=== PATIENT | female | born 1980 | race Caucasian/White ===

== ENCOUNTER 2018-10-20 06:00 | Observation (INO) | payer BC ==
[2018-10-14 10:50] LABS: BASOPHILS % 0.6 % (0.0-1.0); EOSINOPHILS # (AUTO) 0.1 (0.0-0.4); EOSINOPHILS % 2.6 % (0.0-6.0); HEMATOCRIT 35.4 % (34.2-44.1); LYMPHOCYTES # (AUTO) 1.3 (1.0-3.2); MEAN CORPUSCULAR HEMOGLOBIN 31.9 pg (28-32); MEAN CORPUSCULAR HGB CONC 33.9 g/dL (31-35); MEAN CORPUSCULAR VOLUME 94.1 fL (81-99); MONOCYTES # (AUTO) 0.3 (0.2-0.8); MONOCYTES % 9.1 % (4.4-11.3); NEUTROPHILS # (AUTO) 1.4 (2.1-6.9); NEUTROPHILS % 44.4 % (38.7-80.0); PLATELET COUNT 315 x10e3/uL (140-360); RED BLOOD COUNT 3.76 x10e6/uL (3.6-5.1); RED CELL DISTRIBUTION WIDTH 12.6 % (11.7-14.4)
[2018-10-14 11:10] LABS: ALANINE AMINOTRANSFERASE 22 IU/L (0-55); ALBUMIN 3.8 g/dL (3.5-5.0); ALBUMIN/GLOBULIN RATIO 1.2 (0.8-2.0); ALKALINE PHOSPHATASE 89 IU/L (40-150); ANION GAP 9.9 mmol/L (8-16); BLOOD UREA NITROGEN 10 mg/dL (7-26); BUN/CREATININE RATIO 14 (6-25); CALCIUM 9.4 mg/dL (8.4-10.2); CARBON DIOXIDE 29 mmol/L (22-29); CHLORIDE 102 mmol/L (98-107); CREATININE, SERUM 0.71 mg/dL (0.57-1.11); EST GLOMERULAR FILTRATION RATE > 60 ML/MIN (60-); GLUCOSE 74 mg/dL (74-118); POTASSIUM 3.9 mmol/L (3.5-5.1); SODIUM 137 mmol/L (136-145)
[~2018-10-20] VITALS: Ht 160 cm; Wt 76.7 kg
[~2018-10-20 06:00] MED LIST: AMBIEN10 MG PO; CYMBALTA30 MG PO; GABAPENTIN300 MG PO; LEVOTHYROXINE75 MCG PO; NORCO 10-325 T1 EACH PO; VYVANSE60 MG PEG
--- OUTSIDE RECORDS SUMMARY | 2018-10-20 06:02 | XMS REPORT ---
Author Author [facility] Address Unknown Phone Unavailable Care Team Providers Care Customer Service Analyst Name Role Phone Unavailable Unavailable Payers Payer Name Policy Type Policy Number Effective Date Expiration Date Problems This patient has no known problems. Allergies, Adverse Reactions, Alerts Allergy Name Allergy Type Status Severity Reaction(s) Onset Date Inactive Date Treating Clinician Comments No Known Allergies DA Active U 2017-12-01 00:00:00 Medications This patient has no known medications. Results Test Description Test Time Test Comments Text Results Atomic Results Result Comments - XR CHEST 2 V 2018-08-21 19:07:00 FAX: Melony Portillo MD [phone] [place]: St: REG FAX: Gloria Toledo MD [phone] Name: MICHAEL CARRASCO [facility] : 1980 Age/S: 37/F [address] [facility] Unit #: [id number] Loc: [address] [place] [address] [place]: [place] [id number] Acct: [id number] Dis Date: Status: REG ER PHONE #: [phone] Exam Date: 08/21/20181855 FAX #: [phone] Reason: FEVER EXAMS: CPT CODE: [id number] XR CHEST 2 V 30053 EXAM: - XR CHEST 2 V LOCATION: C3 HISTORY: FEVER COMPARISON: 06/16/18 FINDINGS: 2 views of the chest. No indwelling lines or tubes. No pneumothorax. The lungs are clear. No pleural effusions are present. The mediastinal contours are unremarkable. No acute osseous findings are present. IMPRESSION: No acute cardiopulmonary abnormality. at 1907 Reported and signed by: Mikey Astorga M.D. CC: Melony sunshine MD; Gloria Toledo MD Technologist: KIM ENRIQUEZ Trnscrd Date/Time/By: 08/21/2018 (1906) : By: [email or web address] PAGE 1 Signed Report FAX: Melony Portillo MD [phone] [place]: St: REG FAX: Gloria Toledo MD [phone] Name: MICHAEL CARRASCO [facility] : 1980 Age/S: 37/F [address] [facility] Unit #: [id number] Loc: [address] [place] [address] [place]: [place] [id number] Acct: [id number] Dis Date: Status: REG ER PHONE #: [phone] Exam Date: 08/21/20181855 FAX #: [phone] Reason: FEVER EXAMS: CPT CODE: [id number] XR CHEST 2 V 24953 <Continued> Orig Print D/T: S: 08/21/2018 (1909) PAGE 2 Signed Report COMPREHENSIVE METABOLIC PANEL 2018-08-21 18:31:00 SODIUM (test code=NA) 139 mmol/l 134.0-147.0 POTASSIUM (test code=K) 3.3 mmol/L 3.6-5.2 CHLORIDE (test code=CL) 101 mmol/l 98.0-107.0 CARBON DIOXIDE (test code=CO2) 31.3 mmol/l 21.0-33.0 ANION GAP (test code=GAP) 10.0 0-20 GLUCOSE (test code=GLU) 84 mg/dl 70.0-110.0 BLOOD UREA NITROGEN (test code=BUN) 24 mg/dl 7.0-18.0 CREATININE (test code=CREAT) 1.17 mg/dL 0.60-1.30 GFR NON BLACK (test code=GFRNONBLACK) 55 mL/min 105-110 GFR BLACK (test code=GFRBLACK) 66 mL/min 127-133 TOTAL PROTEIN (test code=PROT) 8.1 gm/dL 6.4-8.2 ALBUMIN (test code=ALB) 4.0 gm/dl 3.2-4.7 CALCIUM (test code=CA) 9.7 mg/dl 8.0-10.5 BILIRUBIN TOTAL (test code=BILT) 0.2 mg/dl 0.0-1.0 SGOT/AST (test code=AST) 24 Units/L 15.0-37.0 SGPT/ALT (test code=ALT) 57 Units/L 12.0-78.0 ALKALINE PHOSPHATASE TOTAL (test code=ALKP) 116 Units/L 50.0-136.0 COMPREHENSIVE METABOLIC [id number] 18:19:00* Test Item Value Reference Range Comments SODIUM (test code=NA) 139 mmol/l 134.0-147.0 POTASSIUM (test code=K) 3.3 mmol/L 3.6-5.2 CHLORIDE (test code=CL) 101 mmol/l 98.0-107.0 CARBON DIOXIDE (test code=CO2) 31.3 mmol/l 21.0-33.0 ANION GAP (test code=GAP) 10.0 0-20 GLUCOSE (test code=GLU) mg/dl 70.0-110.0 BLOOD UREA NITROGEN (test code=BUN) mg/dl 7.0-18.0 CREATININE (test code=CREAT) mg/dL 0.60-1.30 GFR NON BLACK (test code=GFRNONBLACK) mL/min 105-110 GFR BLACK (test code=GFRBLACK) mL/min 127-133 TOTAL PROTEIN (test code=PROT) gm/dL 6.4-8.2 ALBUMIN (test code=ALB) gm/dl 3.2-4.7 CALCIUM (test code=CA) mg/dl 8.0-10.5 BILIRUBIN TOTAL (test code=BILT) mg/dl 0.0-1.0 SGOT/AST (test code=AST) Units/L 15.0-37.0 SGPT/ALT (test code=ALT) Units/L 12.0-78.0 ALKALINE PHOSPHATASE TOTAL (test code=ALKP) Units/L 50.0-136.0 URINALYSIS [id number] 18:17:00* Test Item Value Reference Range Comments UA COLOR (test code=COLU) YELLOW UA APPEARANCE (test code=APPU) CLEAR UA GLUCOSE DIPSTICK (test code=DGLUU) NORMAL mg/dl NORMAL UA BILIRUBIN DIPSTICK (test code=BILU) NEGATIVE mg/dL NEGATIVE UA KETONE DIPSTICK (test code=KETU) NEGATIVE mg/dl NEGATIVE UA SPECIFIC GRAVITY (test code=SGU) 1.025 1.000-1.030 UA BLOOD DIPSTICK (test code=ABRAHAM) 10 Austin/micL Austin/micL NEGATIVE UA PH DIPSTICK (test code=DELIA) 6.0 5.0-9.0 UA PROTEIN DIPSTICK (test code=PROU) NEGATIVE mg/dl NEGATIVE UA UROBILINIOGEN DIPSTICK (test code=URO) NORMAL mg/dl NORMAL UA NITRITE DIPSTICK (test code=SHELLY) NEGATIVE NEGATIVE UA LEUKOCYTE ESTERASE DIPSTICK (test code=LEUU) 100 Rodrigue/micL Rodrigue/micL NEGATIVE UA WBC (test code=WBCU) 1-3/HPF WBC/HPF NONE UA RBC (test code=RBCU) 1-3 RBC/HPF 0-3 UA EPITHELIAL CELLS (test code=EPIU) 1-3 EPI/HPF 0-3 UA BACTERIA (test code=BACU) FEW NONE UR HCG [id number] 18:17:00* Test Item Value Reference Range Comments UR HCG QUAL (test code=HCGQLU) NEGATIVE NEGATIVE CBC W/AUTO [id number] 18:14:00* Test Item Value Reference Range Comments WHITE BLOOD CELL (test code=WBC) 6.9 K/mm3 4.5-11.0 RED BLOOD CELL (test code=RBC) 4.23 M/mm3 3.80-5.20 HEMOGLOBIN (test code=HGB) 13.1 gm/dL 12.0-16.0 HEMATOCRIT (test code=HCT) 40.3 % 36.0-48.0 MEAN CELL VOLUME (test code=MCV) 95.3 UM3 82.0-99.0 MEAN CELL HGB (test code=MCH) 31.0 UUG 25.5-32.5 MEAN CELL HGB CONCETRATION (test code=MCHC) 32.5 gm/dL 29.0-35.5 RED CELL DISTRIBUTION WIDTH (test code=RDW) 12.2 % 11.5-15.0 PLATELET COUNT (test code=PLT) 332 K/mm3 150-400 MEAN PLATELET VOLUME (test code=MPV) 9.4 fl 7.4-10.4 NEUTROPHIL % (test code=NT%) 49.1 % 49.0-76.0 LYMPHOCYTE % (test code=LY%) 37.1 % 23.0-38.0 MONOCYTE % (test code=MO%) 10.4 % 1.0-10.0 EOSINOPHIL % (test code=EO%) 2.5 % 1.0-5.0 BASOPHIL % (test code=BA%) 0.6 % 0.0-1.0 NEUTROPHIL # (test code=NT#) 3.4 K/mm3 2.4-6.3 LYMPHOCYTE # (test code=LY#) 2.6 K/mm3 1.2-4.0 MONOCYTE # (test code=MO#) 0.7 K/mm3 0.0-0.6 EOSINOPHIL # (test code=EO#) 0.2 K/MM3 0.0-0.7 BASOPHIL # (test code=BA#) 0.0 K/mm3 0.0-0.2 URINALYSIS [id number] 18:10:00* Test Item Value Reference Range Comments UA COLOR (test code=COLU) UA APPEARANCE (test code=APPU) UA GLUCOSE DIPSTICK (test code=DGLUU) NORMAL mg/dl NORMAL UA BILIRUBIN DIPSTICK (test code=BILU) NEGATIVE mg/dL NEGATIVE UA KETONE DIPSTICK (test code=KETU) NEGATIVE mg/dl NEGATIVE UA SPECIFIC GRAVITY (test code=SGU) 1.025 1.000-1.030 UA BLOOD DIPSTICK (test code=ABRAHAM) 10 Austin/micL Austin/micL NEGATIVE UA PH DIPSTICK (test code=DELIA) 6.0 5.0-9.0 UA PROTEIN DIPSTICK (test code=PROU) NEGATIVE mg/dl NEGATIVE UA UROBILINIOGEN DIPSTICK (test code=URO) NORMAL mg/dl NORMAL UA NITRITE DIPSTICK (test code=SHELLY) NEGATIVE NEGATIVE UA LEUKOCYTE ESTERASE DIPSTICK (test code=LEUU) 100 Rodrigue/micL Rodrigue/micL NEGATIVE UA WBC (test code=WBCU) WBC/HPF NONE UA RBC (test code=RBCU) RBC/HPF 0-3 UA EPITHELIAL CELLS (test code=EPIU) EPI/HPF 0-3 UA BACTERIA (test code=BACU) NONE UR HCG [id number] 18:10:00* Test Item Value Reference Range Comments UR HCG QUAL (test code=HCGQLU) NEGATIVE NEGATIVE URINALYSIS [id number] 18:09:00* Test Item Value Reference Range Comments UA COLOR (test code=COLU) UA APPEARANCE (test code=APPU) UA GLUCOSE DIPSTICK (test code=DGLUU) NORMAL mg/dl NORMAL UA BILIRUBIN DIPSTICK (test code=BILU) NEGATIVE mg/dL NEGATIVE UA KETONE DIPSTICK (test code=KETU) NEGATIVE mg/dl NEGATIVE UA SPECIFIC GRAVITY (test code=SGU) 1.025 1.000-1.030 UA BLOOD DIPSTICK (test code=ABRAHAM) 10 Austin/micL Austin/micL NEGATIVE UA PH DIPSTICK (test code=DELIA) 6.0 5.0-9.0 UA PROTEIN DIPSTICK (test code=PROU) NEGATIVE mg/dl NEGATIVE UA UROBILINIOGEN DIPSTICK (test code=URO) NORMAL mg/dl NORMAL UA NITRITE DIPSTICK (test code=SHELLY) NEGATIVE NEGATIVE UA LEUKOCYTE ESTERASE DIPSTICK (test code=LEUU) 100 Rodrigue/micL Rodrigue/micL NEGATIVE UA WBC (test code=WBCU) WBC/HPF NONE UA RBC (test code=RBCU) RBC/HPF 0-3 UA EPITHELIAL CELLS (test code=EPIU) EPI/HPF 0-3 UA BACTERIA (test code=BACU) NONE UR HCG [id number] 18:09:00* Test Item Value Reference Range Comments UR HCG QUAL (test code=HCGQLU) NEGATIVE BASIC METABOLIC [id number] 12:24:00* Test Item Value Reference Range Comments SODIUM (test code=NA) 141 mmol/l 134.0-147.0 POTASSIUM (test code=K) 3.7 mmol/L 3.6-5.2 CHLORIDE (test code=CL) 105 mmol/l 98.0-107.0 CARBON DIOXIDE (test code=CO2) 28.0 mmol/l 21.0-33.0 ANION GAP (test code=GAP) 11.7 0-20 GLUCOSE (test code=GLU) 138 mg/dl 70.0-110.0 BLOOD UREA NITROGEN (test code=BUN) 10 mg/dl 7.0-18.0 CREATININE (test code=CREAT) 0.81 mg/dL 0.60-1.30 GFR NON BLACK (test code=GFRNONBLACK) 83 mL/min 105-110 GFR BLACK (test code=GFRBLACK) 101 mL/min 127-133 CALCIUM (test code=CA) 9.4 mg/dl 8.0-10.5 BASIC METABOLIC [id number] 12:22:00* Test Item Value Reference Range Comments SODIUM (test code=NA) 141 mmol/l 134.0-147.0 POTASSIUM (test code=K) 3.7 mmol/L 3.6-5.2 CHLORIDE (test code=CL) 105 mmol/l 98.0-107.0 CARBON DIOXIDE (test code=CO2) 28.0 mmol/l 21.0-33.0 ANION GAP (test code=GAP) 11.7 0-20 GLUCOSE (test code=GLU) mg/dl 70.0-110.0 BLOOD UREA NITROGEN (test code=BUN) mg/dl 7.0-18.0 CREATININE (test code=CREAT) mg/dL 0.60-1.30 GFR NON BLACK (test code=GFRNONBLACK) mL/min 105-110 GFR BLACK (test code=GFRBLACK) mL/min 127-133 CALCIUM (test code=CA) mg/dl 8.0-10.5 CBC W/AUTO [id number] 12:20:00* Test Item Value Reference Range Comments WHITE BLOOD CELL (test code=WBC) 3.8 K/mm3 4.5-11.0 RED BLOOD CELL (test code=RBC) 4.09 M/mm3 3.80-5.20 HEMOGLOBIN (test code=HGB) 12.8 gm/dL 12.0-16.0 HEMATOCRIT (test code=HCT) 38.3 % 36.0-48.0 MEAN CELL VOLUME (test code=MCV) 93.6 UM3 82.0-99.0 MEAN CELL HGB (test code=MCH) 31.3 UUG 25.5-32.5 MEAN CELL HGB CONCETRATION (test code=MCHC) 33.4 gm/dL 29.0-35.5 RED CELL DISTRIBUTION WIDTH (test code=RDW) 12.2 % 11.5-15.0 PLATELET COUNT (test code=PLT) 325 K/mm3 150-400 MEAN PLATELET VOLUME (test code=MPV) 9.7 fl 7.4-10.4 NEUTROPHIL % (test code=NT%) 48.4 % 49.0-76.0 LYMPHOCYTE % (test code=LY%) 39.5 % 23.0-38.0 MONOCYTE % (test code=MO%) 8.9 % 1.0-10.0 EOSINOPHIL % (test code=EO%) 2.4 % 1.0-5.0 BASOPHIL % (test code=BA%) 0.5 % 0.0-1.0 NEUTROPHIL # (test code=NT#) 1.9 K/mm3 2.4-6.3 LYMPHOCYTE # (test code=LY#) 1.5 K/mm3 1.2-4.0 MONOCYTE # (test code=MO#) 0.3 K/mm3 0.0-0.6 EOSINOPHIL # (test code=EO#) 0.1 K/MM3 0.0-0.7 BASOPHIL # (test code=BA#) 0.0 K/mm3 0.0-0.2
--- OUTSIDE RECORDS SUMMARY | 2018-10-20 06:02 | XMS REPORT | Clinical Summary ---
Author Author [facility] Address Unknown Phone Unavailable Care Team Providers Care Spa Coordinator Name Role Phone Asked, No Pcp PCP Unavailable Allergies No Known Allergies Medications End Date Status Medication Sig Dispensed Refills Start Date Active DULoxetine (CYMBALTA) 60 Take 60 mg by 0 MG capsule mouth daily. Active levothyroxine (SYNTHROID, Take 75 mcg 0 LEVOXYL) 75 mcg tablet by mouth daily. Active HYDROcodone-acetaminophen Take 1 tablet 0 (NORCO) 10-325 mg per by mouth tablet every 6 (six) hours as needed for moderate pain. Active estradiol (ESTRACE) 0.01 Follow office 42.5 g 1 09/15/201 % (0.1 mg/gram) vaginal instruction. 9 creamIndications: Vaginal Insert one atrophy finger tip unit into vagina nightly x 2wks; after two weeks use 3x weekly at night Active Problems Not on file Encounters Care Team Description Date Type Specialty Megan Babb MD 10/01/2018 Telephone Obstetrics and Gynecology Aniya Mo MD Levator spasm (Primary Dx); Dyspareunia, female; Urinary frequency; Mixed stress and urge urinary incontinence; Vaginal atrophy; Health care maintenance 09/15/2018 Office Visit Urogynecology after 10/19/2017 Family History Medical History Relation Name Comments Heart disease Father Relation Name Status Comments Father Mother Social History Date Tobacco Use Types Packs/Day Years Used Former Smoker Smokeless Tobacco: Never Used Alcohol Use Drinks/Week oz/Week Comments Yes Alcohol Habits Answer Date Recorded How often do you have a drink containing alcohol? Never 09/15/2018 How many drinks containing alcohol do you have on Not asked a typical day when you are drinking? How often do you have six or more drinks on one Not asked occasion? Sex Assigned at Date Recorded Not on file Industry Job Start Date Occupation Not on file Not on file Not on file Travel End Travel History Travel Start No recent travel history available. Last Filed Vital Signs Time Taken Vital Sign Reading 09/15/2018 8:44 AM HARD TILE SETTER APPRENTICE Blood Pressure 109/78 09/15/2018 8:44 AM HARD TILE SETTER APPRENTICE Pulse 98 - Temperature - - Respiratory Rate - - Oxygen Saturation - - Inhaled Oxygen - Concentration 09/15/2018 8:44 AM HARD TILE SETTER APPRENTICE Weight 74.8 kg (165 lb) 09/15/2018 8:44 AM HARD TILE SETTER APPRENTICE Height 160 cm (5' 3") 09/15/2018 8:44 AM HARD TILE SETTER APPRENTICE Body Mass Index 29.23 Plan of Treatment Health Maintenance Due Date Last Done Comments CERVICAL CANCER SCREENING 12/30/1999 INFLUENZA VACCINE 02/18/2018 Procedures Comments Procedure Name Priority Date/Time Associated Diagnosis MEASURE POST VOID Routine 09/15/2018 Mixed stress and urge RESIDUAL urinary incontinence after 10/19/2017 Results * Measure post void residual (09/15/2018) Total volume, urine 18ml after 10/19/2017 Insurance Payer Benefit Subscriber ID Type Phone Address Plan / Group BCBS BCBS xxxxxxxxxxxx PPO CHOICE PPO/LIANE MENSAH PPO ([place]) [place] [address] Advance Directives Patient has advance care planning documents on file. For more information, indu green contact: Zachery Serrano [address] [place] [address]
[2018-10-20] MEDS ORDERED: CEFAZOLIN SOD 2 GM/D5W 50ML 50 ML IV ONE (06:58)
[2018-10-20] MEDS ORDERED: ESTROGENS CONJUGATED VAGINAL CR 45 GM TUBE PV ONE (07:18)
[2018-10-20] MEDS ORDERED: BUPIVACAINE 0.5%/EPI 30 ML SDV INJ ONE (07:18)
[2018-10-20] MEDS ORDERED: BACITRACIN 50,000 UNIT VIAL ONE (07:19)
[2018-10-20] MEDS ORDERED: SIMETHICONE 80 MG CHEW PO PRN (09:45)
[2018-10-20] MEDS ORDERED: HYDROCODONE/APAP 5MG-325MG TAB PO PRN (09:45)
[2018-10-20] MEDS ORDERED: BISACODYL 5 MG TAB EC PO PRN (09:45)
[2018-10-20] MEDS ORDERED: DIPHENHYDRAMINE HCL 25 MG CAP PO PRN (09:45)
[2018-10-20] MEDS ORDERED: PROMETHAZINE HCL (IM) 25 MG/ML VIAL IV PRN (09:45)
--- OUTSIDE RECORDS SUMMARY | 2018-10-20 09:56 | XMS REPORT | Clinical Summary ---
Author Author [facility] Address Unknown Phone Unavailable Care Team Providers Care Fruit Or Nut Grower Name Role Phone Asked, No Pcp PCP [...] Taken Vital Sign Reading 09/15/2018 8:44 AM HOTEL FRONT DESK CLERK Blood Pressure 109/78 09/15/2018 8:44 AM HOTEL FRONT DESK CLERK Pulse 98 - Temperature - - Respiratory Rate - - Oxygen Saturation - - Inhaled Oxygen - Concentration 09/15/2018 8:44 AM HOTEL FRONT DESK CLERK Weight 74.8 kg (165 lb) 09/15/2018 8:44 AM HOTEL FRONT DESK CLERK Height 160 cm (5' 3") 09/15/2018 8:44 AM HOTEL FRONT DESK CLERK Body Mass Index 29.23 Plan of Treatment [...] BCBS xxxxxxxxxxxx PPO CHOICE PPO/LIANE MENSAH PPO ([place]) [place] [address] Advance Directives Patient has advance care planning documents on file. For more information, indu green contact: Zachery Serrano [address] [place] [address]
[2018-10-20] MEDS ORDERED: ZOLPIDEM TARTRATE 10 MG TAB PO PRN (10:00)
[2018-10-20] MEDS ORDERED: FENTANYL CITRATE/PF 100MCG/2 ML INJ ONE ×2 (10:02→19:07)
[2018-10-20 11:15] VITALS: BP 146/91
[2018-10-20] MEDS: HYDROMORPHONE 2MG/ML 2 MG/ML ML IV PRN ×3 (11:15→20:42)
--- NOTE | 2018-10-20 11:15 | NUR ---
PATIENT ADMITTED FROM PACU PER STRETCHER. ALERT AND VERBALLY RESPONSIVE. COMPLAIN OF PAIN TO LOWER ABDOMEN, PAIN MEDICATION GIVEN ORDERED. SKIN WARM AND DRY TO TOUCH, WITH TATOO ALL OVER THE BODY. RESPIRATION EVEN AND UNLABORED. MONTES CATHETER IN PLACE DRAINING CLEAR YELLOW URINE; VAGINAL PACKING IN PLACE DRY AT THIS TIME, TO BE REMOVED IN AM. INCISIONS SITES TO LEFT AND RIGHT GROIN WITH DERMABOND, DRY AND INTACT. ZEHRA HOSE AND SCD IN PLACE. BED IN LOWER POSITION AND LOCKED. CALL LIGHT AT EASY REACH. INSTRUCTED TO CALL FOR ASSISTANCE NEEDED. FAMILY AT BED SIDE.
[2018-10-20 11:23] VITALS: BP 124/77
[2018-10-20] MEDS: KETOROLAC TROMETHAMINE 30 MG/ML VIAL IV SCH ×2 (13:00→18:00)
[2018-10-20] MEDS ORDERED: ESTRADIOL 0.1MG PATCH (ONCE WEEKLY) TOP SCH (13:00)
--- NOTE | 2018-10-20 13:45 | NUR ---
Visit made by the Spiritual Care Department Pastoral Visitor, Meena Pillai. PV provided pastoral presence, prayer, hospitality, and supportive listening. Pastoral Visitor informed pt/family of the scope of Placement Secretary Services and availability. JESSIKA RODRIGUEZ Crm Solution Architect Spiritual Care Department O: [phone] Pager: [phone] ([phone] number calling from)
[2018-10-20] MEDS: CEFAZOLIN SOD 1 GM/NS 50ML 50 ML IV SCH ×2 (14:00→22:22)
[2018-10-20] MEDS: GABAPENTIN 300 MG CAP PO SCH ×2 (15:48→20:41)
[2018-10-20 16:30] VITALS: BP 112/65
--- NOTE | 2018-10-20 16:56 | NUR ---
MONTES CATHETER IN PLACE DRAINING CLEAR YELLOW URINE. PATIENT REQUESTED AND RECEIVED CRANBERRY JUICE. CALL LIGHT AT REACH.
[2018-10-20] MEDS: LACTATED RINGER'S 1,000 ML IV SCH ×2 (17:00→20:41)
[2018-10-20] MEDS: DOCUSATE SODIUM 100 MG CAP PO SCH (17:05)
[2018-10-20] MEDS: ENOXAPARIN 30 MG/0.3 ML SYR SC SCH (17:05)
--- NOTE | 2018-10-20 19:00 | NUR ---
Report and rounds completed, patient in bed resting. Liu patent and draining. Call light within reach. Patient request to be able to sleep as much as possible, been trying to rest but getting woke up. Verbalized understanding of patient goal and will cluster care to help with rest. Will continue to monitor
[2018-10-20] MEDS ORDERED: ROCURONIUM BROMIDE 10 MG/ML 5ML VIAL ONE (19:03)
[2018-10-20] MEDS ORDERED: ONDANSETRON HCL INJ 2MG/ML 2ML 2 MG/ML VIAL ONE (19:03)
[2018-10-20] MEDS ORDERED: LIDOCAINE HCL 2% LOCAL INJ 5 ML SDV VIAL INJ ONE (19:03)
[2018-10-20] MEDS ORDERED: ACETAMINOPHEN 1000 MG/100 ML IV ONE (19:03)
[2018-10-20] MEDS ORDERED: PROPOFOL IV EMULSION 10 MG/ML 20 ML VIAL ONE (19:03)
[2018-10-20] MEDS ORDERED: GLYCOPYRROLATE INJ 1MG/ 5 ML SYR ONE (19:03)
[2018-10-20] MEDS ORDERED: DEXAMETHASONE SOD PHOS INJ 4 MG/ML VIAL ONE (19:03)
[2018-10-20] MEDS ORDERED: NEOSTIGMINE 5 MG/5ML SYR ONE (19:03)
[2018-10-20] MEDS ORDERED: SEVOFLURANE INHAL SOLN 250 ML PEN BTL ONE (19:03)
[2018-10-20] MEDS ORDERED: MIDAZOLAM HCL 2 MG/2 ML VIAL ONE (19:07)
[2018-10-20 20:00] VITALS: BP 106/62
[2018-10-20] MEDS: ONDANSETRON HCL INJ 2MG/ML 2ML 2 MG/ML VIAL IV PRN (20:42)
[2018-10-20] MEDS: HYDROCODONE/APAP 10MG-325MG TAB PO PRN (22:20)
[2018-10-21] VITALS: BP 97/63
[2018-10-21] MEDS: KETOROLAC TROMETHAMINE 30 MG/ML VIAL IV SCH ×3 (00:14→11:50)
[2018-10-21] MEDS: LACTATED RINGER'S 1,000 ML IV SCH ×2 (00:38→10:05)
[2018-10-21] MEDS: HYDROCODONE/APAP 10MG-325MG TAB PO PRN ×2 (02:20→07:05)
[2018-10-21] MEDS: HYDROMORPHONE 2MG/ML 2 MG/ML ML IV PRN ×3 (03:55→14:12)
[2018-10-21] MEDS: ONDANSETRON HCL INJ 2MG/ML 2ML 2 MG/ML VIAL IV PRN (03:55)
[2018-10-21 04:00] VITALS: BP 101/70
[2018-10-21] MEDS: CEFAZOLIN SOD 1 GM/NS 50ML 50 ML IV SCH (05:35)
--- NOTE | 2018-10-21 05:35 | NUR ---
Liu and vaginal packing removed, tolerated well. No bleeding noted. Will continue to monitor.
[2018-10-21 05:45] LABS: BASOPHILS % 0.4 % (0.0-1.0); EOSINOPHILS # (AUTO) 0.1 (0.0-0.4); EOSINOPHILS % 0.8 % (0.0-6.0); HEMATOCRIT 31.5 % (34.2-44.1); HEMOGLOBIN 10.6 g/dL (12.0-16.0); LYMPHOCYTES % 25.3 % (18.0-39.1); MEAN CORPUSCULAR HEMOGLOBIN 32.2 pg (28-32); MEAN CORPUSCULAR HGB CONC 33.7 g/dL (31-35); MEAN CORPUSCULAR VOLUME 95.7 fL (81-99); MONOCYTES # (AUTO) 0.5 (0.2-0.8); NEUTROPHILS # (AUTO) 5.1 (2.1-6.9); NEUTROPHILS % 66.2 % (38.7-80.0); PLATELET COUNT 258 x10e3/uL (140-360); RED BLOOD COUNT 3.29 x10e6/uL (3.6-5.1); RED CELL DISTRIBUTION WIDTH 12.7 % (11.7-14.4)
[2018-10-21] MEDS ORDERED: LEVOTHYROXINE SODIUM 75 MCG TAB PO SCH (06:00)
--- NOTE | 2018-10-21 06:00 | NUR ---
In bed watching TV. Call light within reach. No issue or concerns. No bleeding noted at this time. Will continue to monitor.
--- NOTE | 2018-10-21 06:15 | NUR ---
Call from Dr Martinez: new order: HAVE PATIENT VOID ON OWN IN HAT ( MEASURE), BLADDER SCAN AFTER VOID, IF RISIDUAL MORE 1/3 OF, WHAT PATIENT VOIDED. CONTINUE TO MONITOR, ALLOW, UP TO 2 MORE ATTEMPT OF VOIDING IN HAT AND, BLADDER SCANNING. AFTER THIRD TIME OF RESIDUAL, GREATER THAN 1/3 OF VOIDED AMOUNT, REPLACE MONTES., ( IF RESIDUAL LESS THAN 1/3 OF WHAT VOIDED THAN, PATIENT IS OKAY) Will be here today to see patient
[2018-10-21 06:16] LABS: ANION GAP 9.1 mmol/L (8-16); BLOOD UREA NITROGEN 6 mg/dL (7-26); BUN/CREATININE RATIO 10 (6-25); CALCIUM 8.8 mg/dL (8.4-10.2); CARBON DIOXIDE 29 mmol/L (22-29); CHLORIDE 105 mmol/L (98-107); CREATININE, SERUM 0.62 mg/dL (0.57-1.11); EST GLOMERULAR FILTRATION RATE > 60 ML/MIN (60-); GLUCOSE 94 mg/dL (74-118); POTASSIUM 4.1 mmol/L (3.5-5.1); SODIUM 139 mmol/L (136-145)
--- NOTE | 2018-10-21 07:00 | NUR ---
Patient up to bathroom with assistance to attempt to void. Instructed to call for assistance back to bed when done.
--- NOTE | 2018-10-21 07:20 | NUR ---
Patient back to bed and reports bleeding. Pad checked and noted slight spotting on pad. Small amount of blood noted in hat in toilet. On coming nurse notified and will continue to monitor.
[2018-10-21 07:30] VITALS: BP 98/55
[2018-10-21] MEDS ORDERED: KRISTALOSE20 GM PO (08:04)
[2018-10-21] MEDS ORDERED: VIVELLE-DOT1 EAC1 TD (08:04)
[2018-10-21] MEDS ORDERED: IBUPROFEN600 MG PO (08:04)
[2018-10-21] MEDS: ENOXAPARIN 30 MG/0.3 ML SYR SC SCH (08:32)
[2018-10-21] MEDS: DOCUSATE SODIUM 100 MG CAP PO SCH (08:32)
[2018-10-21] MEDS: GABAPENTIN 300 MG CAP PO SCH (08:32)
--- NOTE | 2018-10-21 08:32 | NUR ---
rechecked bp 117/80 p-81, patient not in any distress, tolerated breakfast, attempted to urinate X1 , just few drops of red urine noted, Dr Vilchis here for rounds notified her,
[2018-10-21] MEDS ORDERED: DULOXETINE HCL 30 MG DELAYED RELEASE PO SCH (09:00)
[2018-10-21] MEDS ORDERED: ESTRADIOL TOP SCH (09:00)
[2018-10-21] MEDS ORDERED: VYVANSE 60 MG PO SCH (09:00)
[2018-10-21 10:17] VITALS: BP 98/55
--- NOTE | 2018-10-21 10:35 | NUR ---
Patient attempted 2nd time to urinate 15cc of red urine noted
--- NOTE | 2018-10-21 11:05 | NUR ---
Bladder scan done 240cc of urine noted,
[2018-10-21 11:39] VITALS: BP 97/58
[2018-10-21] MEDS ORDERED: NORCO 5-325 TA1 EACH PO (14:16)
--- NOTE | 2018-10-21 14:40 | NUR ---
3RD Attempt to urinate , patient urinated 350cc of urine,
[2018-10-21 15:09] VITALS: BP 94/55
--- NOTE | 2018-10-21 15:20 | NUR ---
Patient discharged home, Alert with no distress, prescription given, IV canula removed with tip intact, no infiltration noted, no bleeding from surgical site, at bed side taking her home. Patient aware about f/up appointments. got all personnel belongings with her
--- NOTE | 2018-11-06 03:13 | Operative Report ---
DATE OF PROCEDURE: 10/20/2018 SURGEON: Alyse Martinez MD [employer] DIRECTOR: None. 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 PROCEDURE PERFORMED: Anterior and posterior repair, sacrospinous colpopexy, transobturator taping, and diagnostic cystoscopy. ANESTHESIA: General. ESTIMATED BLOOD LOSS: 100 mL. COMPLICATIONS: None. FINDINGS: Second degree cystocele, second degree rectocele, secondary apical prolapse. SPECIMENS: None. INDICATIONS: The patient is a [id number], who had a history of a hysterectomy with subsequent prolapse of the vaginal vault and stress incontinence p.r.n. PROCEDURE NOTE: The risks, benefits, indications, and alternatives of the procedure were reviewed with the patient and informed consent was obtained. She was taken to the operating room, where general anesthesia was obtained. The patient was placed in dorsal lithotomy position in candy-cane stirrups, and prepped and draped in typical sterile fashion. A weighted speculum was then placed in the patient's vagina. The lateral edges of the vaginal cuff was held with Allis clamp on tension while insertion of 1% Marcaine with epinephrine was injected just below the vaginal mucosa throughout the area of the cystocele. Several Allis clamps were placed 3 to 4 cm apart of the midline of the anterior vaginal wall. A transverse incision was then made in the vaginal mucosa just superior to the vaginal cuff. The edges of the vaginal mucosa was then held with hemostat and the Metzenbaum scissors were used to undermine the mucosa from the underlying. The mucosa was then opened with the scissors in the midline within 1 cm of the urethral meatus. As the vagina was opened, the edges of the mucosa was grasped with hemostats. Fascia was from the vaginal mucosa using both sharp and blunt dissection until the bladder and urethra were from the vaginal mucosa and clearly identified. A finger was then inserted through the incision in the vaginal mucosa and used to bluntly dissect the rectovaginal space on the patient's right side. The ischial spine and sacrospinous ligaments were then palpated and loose areolar tissue was bluntly dissected off the ligament. A zone approximately 1.5 cm medial to the ischial spine was selected for insertion of the suture. A [email or web address] suture capturing device was loaded with 0 Vicryl suture and was then introduced into the space and passed to the sacrospinous ligament. This entire procedure was then repeated on the patient's left sacrospinous ligament. The ends of the suture previously inserted through the ligaments were then placed through the muscular layer of the vagina using the Capio SLIM device. Attention was then returned to the anterior colporrhaphy, which was started by placing 0 Vicryl sutures in the pubovesical cervical fascia approximately 1 cm below the urethral meatus. The remaining fascia was plicated in the midline with multiple interrupted 0 Vicryl sutures until the entire cystocele had been reduced. The edges of the vaginal mucosa were then held on tension and the excessive vaginal mucosa was trimmed away using Jain scissors. The vaginal mucosa was then sutured in midline with continuous 0 Vicryl. Attention was then turned to the transobturator tape placement. A Liu catheter was placed to empty the bladder. A solution of 0.5% Marcaine with epinephrine was injected just below the vaginal mucosa shelter between the meatus and the uterovesical junction and on each side of the urethra deep into the endopelvic fascia. A 1 cm incision was made vertically at the level of the midurethra through the vaginal mucosa. A combination of blunt and sharp dissection was performed until the pubic rami were palpable bilaterally. The connective tissues were then dissected bluntly and sharply to allow placement of Obtryx trocars. The 5 mm incisions were then made with scalpel in the mid-crural line at the level of the clitoris bilaterally. The trocar was then placed through the incision on the patient's left side, pierced throughout the obturator membrane and guided along the posterior aspect of the pubic rami until the trocar was brought out through the vaginal mucosal incision. The TOT sling was then placed on the trocar and guided out through the trocar tract. A similar procedure was then performed on the opposite side. The transvaginal tape was then pulled up to a point loosely underlying the urethra that freely admitted the tips of the surgical scissors. The Liu catheter was then removed and diagnostic cystoscopy performed. The bladder and urethra were inspected for perforation and none was noted. The plastic sheaths were removed from the sling and the ends were cut below the skin level at the exit points. The skin punctures were then closed with Dermabond and the vaginal mucosa was closed with 2-0 running Vicryl sutures. The bladder was emptied and the Liu catheter was replaced. Attention was then returned to the sacrospinous ligament fixation, where the previously clamped sutures were tied drawing the vaginal vault directly to the level of the ligaments and affixing them in place. Attention was then turned to the posterior repair where the apices of the posterior fourchette were grasped with Allis clamps and a solution of 0.5% Marcaine with epinephrine was injected just below the vaginal mucosa throughout the area of the rectocele. A transverse incision was then made with the scalpel at the level of the hymenal ring. An additional Allis clamp was then placed in the midline at the top of the rectocele and 2 hemostats were placed at the edges of the mucosa for retraction. Metzenbaum scissors were then inserted under the posterior vaginal mucosa dissecting the posterior mucosa off the rectovaginal fascia. A midline incision was then made in the mucosa. This process was repeated until the superior apex of the rectocele was reached. Interrupted sutures of 2-0 Vicryl were then placed to reapproximate the superficial transverse perinei muscle and levator ani muscle respectively. The vagina was then closed over this repair using 2-0 Vicryl suture. The bulbocavernosus was then reapproximated in the midline with the same suture and the perineal body was repaired at the level of the skin in a subcuticular fashion using the same 2-0 Vicryl. The vagina was then copiously irrigated and hemostasis was noted. Vaginal packing soaked in Premarin cream was then placed within the vagina and all instruments were removed. The patient was awakened from general anesthesia and brought to the recovery room in stable condition. All sponge, lap, needle, and instrument counts were correct x2. MD BROCK Trivedi/MODL /[id number]
== END 2018-10-21 15:49 | disposition home or self-care (01) ==
LOC: OR 06:00 → PACU V 09:43 → IMCU 10:44
PROVIDERS: ADMIT Obstetrics & Gynecology Obstetrics; ATTEND Obstetrics & Gynecology Obstetrics
DX: N81.89 Other female genital prolapse (principal); N39.3 Stress incontinence (female) (male); Z01.812 Encounter for preprocedural laboratory examination; E03.9 Hypothyroidism, unspecified; F41.9 Anxiety disorder, unspecified; F31.9 Bipolar disorder, unspecified; Z87.440 Personal history of urinary (tract) infections; Z87.442 Personal history of urinary calculi; N81.10 Cystocele, unspecified; N81.6 Rectocele
CPT/HCPCS: 36415 ×2; 57260; 57282; 57288; 80048; 80053; 85025 ×2; 93005; 96360; 96361; C1781; G0378 ×2; J0131; J0690 ×3; J1100; J1170 ×2; J1650 ×2; J1885 ×2; J2001; J2250; J2405 ×2; J2550; J2704; J3490; J7121 ×2